=== PATIENT | female | born 1950 | race Two or more races ===

== ENCOUNTER 2024-03-22 04:16 | Day surgery (SDC) | payer OTHER ==
[2024-03-20 12:58] VITALS: BMI 18.0
[2024-03-22] MEDS ORDERED: PROPOFOL 20 ML ONE (13:31)
[2024-03-22] MEDS ORDERED: MIDAZOLAM HCL 2 MG/2 ML SINGLE DOSE VIAL ONE (13:32)
[2024-03-22] MEDS ORDERED: LIDOCAINE HCL 1%, 10 MG/ML (20ML VIAL) ONE (13:36)
[2024-03-22] MEDS ORDERED: BUPIVACAINE HCL/PF 0.25% (2.5MG/ML) 10 ML VIAL ONE (13:37)
[2024-03-22] MEDS: ceFAZolin SODIUM 1 GM VIAL IVPB ONE (14:20)
[2024-03-22] MEDS: BUPIVACAINE HCL/PF 0.5% (5MG/ML) 10 ML VIAL IJ ONE (14:56)
[2024-03-22] MEDS: LIDOCAINE 1%/EPI 1:100000 (20 ML MULTI DOSE VIAL) IJ ONE (14:56)
[2024-03-22] MEDS ORDERED: LACTATED RINGERS SOLUTION 1,000 ML IV SCH (16:00)
[2024-03-22 18:02] VITALS: RESP 16
[2024-03-22 19:00] VITALS: BP 117/61; PULSE 64; TEMP 97.1
== END 2024-03-22 19:10 | disposition home or self-care (01) ==
LOC: JASU-SURG 04:16
PROVIDERS: ATTEND Surgery
PROC: 0GTG0ZZ Resection of Left Thyroid Gland Lobe, Open Approach (ICD-10-PCS; 2024-03-22)
PROC: 0GTJ0ZZ Resection of Thyroid Gland Isthmus, Open Approach (ICD-10-PCS; principal; 2024-03-22 14:00)
DX: E04.2 Nontoxic multinodular goiter (principal)
CPT/HCPCS: 36415; 84439; 84443; 88307-TC; 88341-TC; 88342-TC; 94760

== ENCOUNTER 2024-03-23 05:41 | Emergency (ER) | payer OTHER ==
[2024-03-23 05:54] VITALS: TEMP 98.8; BMI 18.0
[2024-03-23] MEDS ORDERED: ONDANSETRON 4 MG/2 ML VIAL ONE (06:36)
[2024-03-23] MEDS: SODIUM CHLORIDE 0.9% 500 ML INFUS.BAG IV ONE (06:59)
[2024-03-23] MEDS: ONDANSETRON 4 MG/2 ML VIAL IVPUSH ONE (06:59)
[2024-03-23 07:19] LABS: BASO % 0.2 % (0-2.0); HEMATOCRIT 37.6 % (32.4-45.2); HEMOGLOBIN 12.7 GM/dL (10.7-15.3); LYMPH % 4.5 % (8-40); MCH 30.1 pg (25.7-33.7); MCHC 33.7 g/dl (32.0-36.0); MEAN CELL VOLUME 89.4 fl (80-96); MEAN PLT VOLUME 9.1 fl (7.5-11.1); NEUT % 89.3 % (42.8-82.8); PLATELET COUNT 171 10^3/uL (134-434); RBC 4.21 M/mm3 (3.60-5.2); RDW 13.9 % (11.6-15.6); WHITE BLOOD COUNT 12.7 K/mm3 (4.0-10.0)
[2024-03-23 07:22] LABS: POTASSIUM 3.8 mmol/L (3.5-5.1)
[2024-03-23 07:25] LABS: CALCIUM 8.8 mg/dL (8.5-10.1)
[2024-03-23 07:28] LABS: CREATININE 0.9 mg/dL (0.55-1.3)
[2024-03-23 07:30] LABS: BILIRUBIN,TOTAL 0.5 mg/dL (0.2-1); TOT PROT 7.4 g/dl (6.4-8.2)
[2024-03-23 09:05] VITALS: BP 115/78; PULSE 79; RESP 16
== END 2024-03-23 09:05 | disposition home or self-care (01) ==
LOC: JER 05:41
PROC: 3E033GC Introduction of Other Therapeutic Substance into Peripheral Vein, Percutaneous Approach (ICD-10-PCS; principal; 2024-03-23)
DX: R11.2 Nausea with vomiting, unspecified (principal); R68.83 Chills (without fever)
CPT/HCPCS: 36415; 80053; 83690; 84484; 85025; 93005; 93010; 96374; 99284-25